=== PATIENT | male | born 1990 | race Caucasian/White ===

== ENCOUNTER 2017-09-16 14:38 | Emergency (ER) | payer BC ==
--- NOTE | 2017-09-16 15:19 | Emergency Department Record ---
History of Present Illness - General Chief Complaint: Ankle/Foot Injury Stated Complaint: BOTH FOOT PAIN/LT FOOT IS WORSE Time Seen by Provider: 09/16/17 14:50 Source: Patient Mode of Arrival: Wheelchair Limitations: No limitations - History of Present Illness Initial Comments: The patient is here for bilateral foot pain due to falling a couple of feet onto his bare feet. He was doing pullups on a bar in his house that was across a doorway and let himself down and landed on his feet on cement. Since he has had extreme pain to his feet L>R. The patient denies any other injuries. The patient was able to ambulate after the fall but later the pain worsened. MD Complaint: Foot injury Onset/Timin -: Hour(s) Type of Injury: Other Place: Home Severity scale (1-10): 8 Improves With: Nothing Worsens With: Nothing Associated Symptoms: Unable to bear weight - Related Data Home Medications Medication Instructions Recorded Confirmed Last Taken No Home Med [NO HOME MEDS] 09/16/17 09/16/17 Unknown Allergies Allergy/AdvReac Type Severity Reaction Status Date / Time amoxicillin Allergy PT UNSURE Verified 09/16/17 14:51 OF REACTION sulfamethoxazole Allergy PT UNSURE Verified 09/16/17 14:51 [From ] OF REACTION trimethoprim [From ] Allergy PT UNSURE Verified 09/16/17 14:51 OF REACTION Travel Screening - Travel/Exposure Within Last 30 Days Have you traveled within the last 30 days?: No - Travel/Exposure Within Last Year Have you traveled outside the [place] in the last year?: No - Additonal Travel Details Have you been exposed to anyone with a communicable illness?: No - Travel Symptoms Symptom Screening: None Review of Systems Constitutional: Denies: Chills, Fever Eyes: Denies: Eye discharge ENT: Denies: Congestion Respiratory: Denies: Cough, Dyspnea Past Medical History - SOCIAL HISTORY Smoking Status: Current every day smoker Alcohol Use: Rare Drug Use: Heavy Drug Use Detail:: Marijuana - RESPIRATORY Hx Respiratory Disorders: Yes Hx Asthma: Yes (as child) - CARDIOVASCULAR Hx Cardio Disorders: No - NEURO Hx Neuro Disorders: No - GI Hx GI Disorders: No - Hx Genitourinary Disorders: Yes Comment:: ruptured kidney - ENDOCRINE Hx Endocrine Disorders: No - MUSCULOSKELETAL Hx Musculoskeletal Disorders: No - PSYCH Hx Psych Problems: No - HEMATOLOGY/ONCOLOGY Hx Hematology/Oncology Disorders: No Family Medical History Any Significant Family History?: No Physical Exam - General General Appearance: Alert, Oriented x3, Cooperative, No acute distress - Head Head exam: Atraumatic, Normocephalic - Eye Eye exam: Normal appearance, PERRL - Extremities Extremities exam: Normal inspection (There is no foot swelling, bruising or edema.), Normal capillary refill, Tenderness (There is significant tenderness to the plantar fascia area bilaterally L>R. There is no dorsal foot tenderness. ), Other (The bilateral feet are NVI with normal pulses.). negative: Joint swelling Course Vital Signs 09/16/17 14:43 Temperature 98.0 F Pulse Rate 67 Respiratory 16 Rate Blood Pressure 127/51 Pulse Ox 100 - Reevaluation(s) Reevaluation #1: I did explain to the patient that his xrays are neg. He is to use Tylenol for pain and ice the bottoms of the feet the next 3 days and to walk with the post op shoes. He is to see his family doctor if not better later this week. 09/16/17 15:36 Medical Decision Making - Data Complexity MDM Data: X-Ray Ordered and/or Reviewed - Radiology Data Radiology results: Report reviewed (Bilateral feet xrays: Neg per Rad.) Disposition Disposition: Discharge Clinical Impression: Contusion of foot, left, Contusion of forearm, right Disposition: Home, Self-Care Condition: (2) Stable Instructions: Foot Sprain (ED) Additional Instructions: Please use Tylenol for pain and ice the bottoms of the feet when possible. Use the hard soled shoes for walking the next 3 days. Please see your family doctor if not better later this week. Return to the ER for any worsening symptoms. Forms: Patient Portal Access Time of Disposition: 15:39 Quality - Quality Measures Quality Measures: N/A - Blood Pressure Screening View Details: Yes Does Patient Have Any of the Following: No Blood Pressure Classification: Pre-Hypertensive BP Reading Systolic Measurement: 127 Diastolic Measurement: 51 Screening for High Blood Pressure: < Pre-Hypertensive BP, F/U Documented > [ G8950] Pre-Hypertensive Follow-up Interventions: Referral to alternative/primary care provider.
[2017-09-16] MEDS ORDERED: IBUPROFEN 600 MG TABLET PO ONE (15:25)
[2017-09-16] MEDS ORDERED: ACETAMINOPHEN 325 MG TAB PO ONE (15:32)
--- NOTE | 2017-09-18 10:05 | RADIOLOGY REPORT ---
EXAM: LEFT FOOT HISTORY: LANDED HARD ON CEMENT. PLANTAR PAIN RADIATING INTO THE LOWER LEG. PAIN WITH WEIGHT BEARING. TECHNIQUE: Three views of the left foot were obtained. Comparison: None. FINDINGS: The bones and joints are normal in appearance. There is no acute fracture or dislocation. No significant soft tissue swelling is identified. IMPRESSION: NO ACUTE LEFT FOOT PATHOLOGY. JOB NUMBER: [id number] MTDD
--- NOTE | 2017-09-18 10:08 | RADIOLOGY REPORT ---
EXAM: RIGHT FOOT HISTORY: LANDED HARD ON CEMENT. RIGHT FOOT PAIN RADIATING INTO THE LOWER LEG. TECHNIQUE: Three views of the right foot were obtained. Comparison: None. FINDINGS: The bones and joints are normal in appearance. There is no visible acute fracture or dislocation. No focal soft tissue swelling is identified. IMPRESSION: NO ACUTE RIGHT FOOT PATHOLOGY IDENTIFIED. JOB NUMBER: [id number] MTDD
--- NOTE | 2017-09-19 07:35 | Emergency Department Record ---
History of Present Illness - General Chief Complaint: Ankle/Foot Injury Stated Complaint: BOTH FOOT PAIN/LT FOOT IS WORSE Time Seen by Provider: 09/16/17 14:50 Source: Patient Mode of Arrival: Wheelchair Limitations: No limitations - History of Present Illness Onset/Timin -: Hour(s) Type of Injury: Other Place: Home Severity scale (1-10): 8 Improves With: Nothing Worsens With: Nothing Associated Symptoms: Unable to bear weight - Related Data Home Medications Medication Instructions Recorded Confirmed Last Taken No Home Med [NO HOME MEDS] 09/16/17 09/16/17 Unknown Allergies Allergy/AdvReac Type Severity Reaction Status Date / Time amoxicillin Allergy PT UNSURE Verified 09/16/17 14:51 OF REACTION sulfamethoxazole Allergy PT UNSURE Verified 09/16/17 14:51 [From ] OF REACTION trimethoprim [From ] Allergy PT UNSURE Verified 09/16/17 14:51 OF REACTION Travel Screening - Travel/Exposure Within Last 30 Days Have you traveled within the last 30 days?: No - Travel/Exposure Within Last Year Have you traveled outside the [place] in the last year?: No - Additonal Travel Details Have you been exposed to anyone with a communicable illness?: No - Travel Symptoms Symptom Screening: None Review of Systems Constitutional: Denies: Chills, Fever Eyes: Denies: Eye discharge ENT: Denies: Congestion Respiratory: Denies: Cough, Dyspnea Past Medical History - SOCIAL HISTORY Smoking Status: Current every day smoker Alcohol Use: Rare Drug Use: Heavy Drug Use Detail:: Marijuana - RESPIRATORY Hx Respiratory Disorders: Yes Hx Asthma: Yes (as child) - CARDIOVASCULAR Hx Cardio Disorders: No - NEURO Hx Neuro Disorders: No - GI Hx GI Disorders: No - Hx Genitourinary Disorders: Yes Comment:: ruptured kidney - ENDOCRINE Hx Endocrine Disorders: No - MUSCULOSKELETAL Hx Musculoskeletal Disorders: No - PSYCH Hx Psych Problems: No - HEMATOLOGY/ONCOLOGY Hx Hematology/Oncology Disorders: No Family Medical History Any Significant Family History?: No Physical Exam - General Limitations: No limitations Course Vital Signs 09/16/17 09/16/17 14:43 16:27 Temperature 98.0 F 98.7 F Pulse Rate 67 69 Respiratory 16 18 Rate Blood Pressure 127/51 116/64 Pulse Ox 100 98 Disposition Clinical Impression: Contusion of foot, left Qualifiers: Encounter type: initial encounter Qualified Code(s): S90.32XA - Contusion of left foot, initial encounter Contusion of forearm, right Qualifiers: Encounter type: initial encounter Qualified Code(s): S50.11XA - Contusion of right forearm, initial encounter Contusion of right foot Qualifiers: Encounter type: initial encounter Qualified Code(s): S90.31XA - Contusion of right foot, initial encounter Disposition: Home, Self-Care Condition: (2) Stable Instructions: Foot Sprain (ED) Additional Instructions: Please use Tylenol for pain and ice the bottoms of the feet when possible. Use the hard soled shoes for walking the next 3 days. Please see your family doctor if not better later this week. Return to the ER for any worsening symptoms. Forms: Patient Portal Access Quality - Quality Measures Quality Measures: N/A - Blood Pressure Screening View Details: Yes Does Patient Have Any of the Following: No Blood Pressure Classification: Normal BP Reading Systolic Measurement: 116 Diastolic Measurement: 64 Screening for High Blood Pressure: < Normal BP, F/U Not Required > [G8783]
== END 2017-09-16 15:52 | disposition home or self-care (01) ==
LOC: ER 14:38
DX: S90.32XA Contusion of left foot, initial encounter (principal); S90.31XA Contusion of right foot, initial encounter; W17.89XA Other fall from one level to another, initial encounter; Y92.009 Unspecified place in unspecified non-institutional (private) residence as the place of occurrence of the external cause; F17.210 Nicotine dependence, cigarettes, uncomplicated
CPT/HCPCS: 99283